=== PATIENT | female | born 2000 | race Caucasian/White ===

== ENCOUNTER 2021-07-20 03:15 | Inpatient (IN) ==
[2021-07-20] MEDS ORDERED: OXYTOCIN 30 UNITS/500 ML BAG IV PRN ×2 (04:02→17:25)
[2021-07-20 04:50] LABS: Hematocrit (blood only) 34.4 % (37-47); Hemoglobin 11.6 g/dL (12.0-16.0); Mean Corpuscular Hemoglobin 29.3 pg (25-34); Mean Corpuscular Hgb Conc 33.7 g/dL (32-36); Mean Corpuscular Volume 86.9 fL (80-100); Mean Platelet Volume 11.4 fL (7.4-10.4); Platelet Count 259 K/uL (130-400); RDW Coefficient of Variation 13.5 % (11.5-14.5); Red Blood Count 3.96 M/uL (4.2-5.4); White Blood Count 12.16 K/uL (4.8-10.8)
--- NOTE | 2021-07-20 07:32 | History & Physical Report ---
Date of Service July 20, 2021 Assessment & Plan (1) Gestational diabetes mellitus (GDM) affecting , antepartum: Plan: Patient presents with rupture membranes and initially she was juan in the middle of the night when she showed up at the side. Recommended Pitocin I reviewed her record gestational diabetes two-vessel cord obesity first baby she is almost 40 weeks today I recommend augmentation with Pitocin as mentioned estimated weight 8 pounds her check was 2 cm I will not repeat it now as she is not juan enough to justify it Admission and Anticipated Discharge Date Admission Date: July 20, 2021 History of Present Illness Primary Care Provider: NO PCP Allergies Allergy/AdvReac Type Severity Reaction Status Date / Time No Known Allergies Allergy Verified 07/20/21 03:18 Home Medications Medication Instructions Recorded Confirmed Type prenat.vits,ascencion,ncf-wytq-ntckj 1 tab PO DAILY 12/03/20 07/20/21 History acetone (urine) test (Ketone Urine #50 ea 06/14/21 07/16/21 Rx Test) blood sugar diagnostic (OneTouch #150 ea 06/14/21 07/16/21 Rx Verio test strips) blood-glucose meter (OneTouch #1 ea 06/14/21 07/16/21 Rx Verio Flex meter) lancets 33 gauge (OneTouch Delica #150 ea 06/14/21 07/16/21 Rx Plus Lancet) Patient History Medical History Varicella vaccination Surgical History S/P wisdom tooth extraction Family History (Updated 12/03/20 @ 08:51 by Yojana Mckeon) Grandmother (Paternal) Breast cancer Grandfather (Paternal) Diabetes Denies family history of Ovarian cancer Colorectal cancer Social History (Updated 02/11/21 @ 11:07 by Luciana Thompson MD) Smoking Status: Never smoker Hx Alcohol Use: No Hx Substance Use: No Preferred Language: Guyanese Communication Ability: Effective 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 Beliefs That Will Affect Care: None marital status: marital status details: juju Steiner [phone] Current Living Situation: Spouse Current Living Situation Comment: lives with fiance, dogs, chickens current occupational status: employed current occupation: [employer] Other Information That Helps Us Care for You: No Feels Safe at Home: Yes Safety Concerns: Feels Safe At This Time Results & Data ([facility]) Vital Signs (Past 12 Hours) Vital Signs Temp Pulse Resp BP 07/20/21 07:22 109 H 135/78 07/20/21 06:54 104 H 137/92 07/20/21 04:48 98.4 F 18 07/20/21 03:36 98.6 F 131 H 18 136/83 07/20/21 03:32 98.6 F 18 Coding Level of Care Code None Diagnoses Gestational diabetes mellitus (GDM) affecting , antepartum O24.419
[2021-07-20] MEDS: OXYTOCIN 30 UNITS/500 ML BAG IV PRN ×2 (08:04→16:32)
[2021-07-20] MEDS: LACTATED RINGER'S 1,000 ML IV PRN ×2 (08:04→17:18)
[2021-07-20] MEDS ORDERED: BUTORPHANOL TARTRATE 1 MG/ML VIAL IV ONE (12:48)
[2021-07-20] MEDS ORDERED: LIDOCAINE 1% LOCAL 20 ML VIAL ONE ×2 (15:48→15:57)
[2021-07-20] MEDS ORDERED: miSOPROStoL 200 MCG TAB ONE (16:49)
[2021-07-20] MEDS ORDERED: ceFAZolin 3,000 MG in DEXTROSE 5% 50 ML IV STA (16:59)
[2021-07-20] MEDS ORDERED: SUPERCREAM 0.870% 15 GM JAR EXT PRN (17:25)
[2021-07-20] MEDS ORDERED: BENZOCAINE 20% AER SPR 82.5 GM CAN EXT PRN (17:25)
[2021-07-20] MEDS ORDERED: HYDROCORTISONE ACETATE 25 MG SUPP PR PRN (17:25)
[2021-07-20] MEDS ORDERED: miSOPROStoL 200 MCG TAB PR ONE (17:25)
[2021-07-20] MEDS ORDERED: bisacodyL 10 MG SUPP PR PRN (17:25)
[2021-07-20] MEDS ORDERED: DIPHTHERIA/TETANUS/PERTUSSIS 0.5 ML SYR/VIAL IM ONE (17:25)
[2021-07-20] MEDS: IBUPROFEN 600 MG TAB PO PRN ×2 (17:56→22:18)
[2021-07-20] MEDS ORDERED: NALBUPHINE HCL INJ 10 MG/ML AMP IV PRN (19:06)
[2021-07-20] MEDS ORDERED: fentaNYL 2MCG/ML ROPIVACAINE 1.25MG/ML 100 ML BAG EPI PRN (19:06)
[2021-07-20] MEDS ORDERED: ONDANSETRON INJ 2 MG/ML 2 ML VIAL IV PRN (19:06)
[2021-07-20] MEDS ORDERED: ePHEDrine sulfate 50 MG/ML AMP IV PRN (19:06)
[2021-07-20] MEDS ORDERED: diphenhydrAMINE 50 MG/ML VIAL IV PRN (19:06)
[2021-07-20] MEDS ORDERED: NALOXONE HCL 1 MG in SODIUM CHLORIDE 0.9% 1000ML 1,000 ML IV PRN (19:06)
[2021-07-20] MEDS ORDERED: NALOXONE HCL 0.4 MG/1 ML VIAL/CARP IV PRN (19:06)
--- NOTE | 2021-07-20 19:14 | Anesthesiology Consultation ---
Date of Service July 20, 2021 Assessment & Plan (1) Encounter for pre-operative examination: Chart Review Chart Review: Patient NOT seen in Pre Admission Testing and Acceptable Risk for Labor Epidural Consults Requested none ASA ASA3 Proposed Anesthesia Anesthesia Type: Labor Epidural and CSE Risk / Benefits Reviewed With: PT / POA / Parent / Guardian, Accepts Plan and Informed Consent Obtained History Surgery The patient is Covid 19 positive as of testing from 07/18/21. She has no symptoms of Covid 19 but her boyfriend who is present has fatigue. Height/Weight Height: 5 ft 8 in Weight: 133.81 kg Allergies Allergy/AdvReac Type Severity Reaction Status Date / Time No Known Allergies Allergy Verified 07/20/21 03:18 Medications Home Medications Medication Instructions Recorded Confirmed Last Taken prenat.vits,ascencion,lbc-ysnd-aniuc 1 tab PO DAILY 12/03/20 07/20/21 07/19/21 acetone (urine) test (Ketone Urine #50 ea 06/14/21 07/16/21 Unknown Test) blood sugar diagnostic (OneTouch #150 ea 06/14/21 07/16/21 Unknown Verio test strips) blood-glucose meter (OneTouch #1 ea 06/14/21 07/16/21 Unknown Verio Flex meter) lancets 33 gauge (OneTouch Delica #150 ea 06/14/21 07/16/21 Unknown Plus Lancet) Active Medications Generic Name Dose Route Start Last Admin Trade Name Freq PRN Reason Stop Dose Admin Benzocaine 1 appln 07/20/21 17:25 07/20/21 19:03 Benzocaine 20% Aer Spr 82.5 Gm Can EXT 08/19/21 17:24 82.5 appln PRN PRN Administration Perineal Discomfort Lactated Ringer's 1,000 mls @ 125 mls/hr 07/20/21 04:02 07/20/21 17:18 Lr IV 07/22/21 04:01 125 mls/hr .Q8H PRN Administration L&D Protocol Protocol Oxytocin 30 units in 500 mls @ 333 mls/hr 07/20/21 07:29 07/20/21 16:32 Pitocin IV 07/22/21 07:28 19.98 units/hr .Q1H31M PRN 333 mls/hr Labor Induction/Augmentation Administration Protocol 19.98 UNITS/HR Ibuprofen 600 mg 07/20/21 17:25 07/20/21 17:56 Ibuprofen 600 Mg Tab PO 08/19/21 17:24 600 mg Q4H PRN Administration Pain/ALFONSO/Cramping/Fever NPO Date Last Intake of Fluids: 07/20/21 Time Last Intake of Fluids: 16:00 Last Intake of Fluids Comment: ice chips Date Last Intake of Solids: 07/19/21 Time Last Intake of Solids: 20:00 Past Medical History Medical History Gestational diabetes mellitus (GDM) affecting , antepartum Varicella vaccination Exercise / Class Metabolic Activity II 4-5 Yardwork/Stairs/Walk up hill Past Family History Family History Grandmother (Paternal) Breast cancer Grandfather (Paternal) Diabetes Denies family history of Ovarian cancer Colorectal cancer Past Surgical History Surgical History S/P wisdom tooth extraction Past Anesthesia History No Hx of Anesthesia Complications and No Family Hx of Anesthesia Complications History of PONV No Hx of PONV and No Hx of Motion Sickness Social History Smoking Status: Never smoker Hx Alcohol Use: No Hx Substance Use: No Review of Systems no chest pain or sob Physical Exam Vital Signs Last Vital Signs Temp 37.0 C 07/20/21 19:00 Pulse 105 H 07/20/21 18:52 Resp 18 07/20/21 19:00 BP 151/80 H 07/20/21 18:52 ENMT Mouth: no TMJ abnormality Thyromental Distance: > or= 3.5 Finger Breadths Mallampati Class: II Neck normal visual inspection Respiratory normal respiratory effort Auscultation: lungs clear to auscultation bilaterally Cardiovascular Rate/Rhythm: regular rate and regular rhythm Musculoskeletal Spine: normal cervical ROM Neurologic moves all extremities Psychiatric Orientation: alert and oriented x 3 Testing Laboratory Results 07/20/21 04:16 Blood Type O Negative 07/20/21 04:16 Antibody Screen NEGATIVE 07/20/21 04:16
[2021-07-20] MEDS: DOCUSATE SODIUM 100 MG CAP PO SCH (20:09)
[2021-07-20] MEDS: ACETAMINOPHEN 325 MG TAB PO PRN (20:46)
--- NOTE | 2021-07-21 01:26 | Operative Report (OR) ---
PROCEDURE: Normal spontaneous vaginal delivery with fourth-degree perineal laceration repair, bilateral sulcal laceration repairs and bilateral labial laceration repairs. ESTIMATED BLOOD LOSS: 400 mL DRAINS: None. FLUIDS: Continuous lactated Ringer. URINE OUTPUT: None. INDICATIONS: The patient s a 21-year-old G1, P0, admitted at 40 weeks, 0 days gestational age with spontaneous rupture of membranes. The patient was juan initially on presentation; however, contractions waned and the patient was started on oxytocin per regular protocol. She progressed in labor without epidural anesthesia and progressed to complete-complete, +1 station, at which time she felt a strong urge to push. DESCRIPTION OF PROCEDURE: The patient progressed to 10 cm dilated, 100% effaced, positive 1 station, pushed over intact perineum without anesthesia and delivered a viable with weight and Apgars pending. The head of the delivered in KENYATTA position, restituted to right transverse. Nuchal cord x1 was noted, which was easily reduced. Body and shoulders quickly followed. was noted to be vigorous soon after delivery and a 30-second delayed cord clamping was initiated, after which the cord was double clamped and cut. Cord segment and cord blood were obtained. Attention was then turned to delivery of the placenta, which was delivered intact, 3-vessel cord, gentle cord traction. On inspection of perineum, there was noted to be a fourth-degree perineal laceration with the distal rectal mucosa disrupted right at the rectal verge and maybe 0.5-1 cm beyond the rectal verge. The rectal mucosa was reapproximated with 3-0 Vicryl interrupted stitch. It took approximately 3 stitches to close the small defect. The anal sphincter was then identified, grasped with Iram clamps and was reapproximated at the 3, 6, 9, and 12 o'clock position with 2-0 Vicryl in interrupted stitch. There was noted to be bilateral sulcal lacerations. These were repaired with 3-0 Vicryl in continuous running locked stitch. The standard second-degree was then repaired with the crown stitch with care to approximate the deeper layers between the rectum and the vaginal mucosa. This was repaired in 3 layers as well with the deeper layers repaired with 3-0 Vicryl in an interrupted and the more superficial layers including the vaginal mucosa and a more superficial layers with a continuous running stitch. The bilateral labial lacerations were repaired with 3-0 Vicryl with a continuous running stitch. After the completion of the repair, there was noted to be excellent cosmesis of the lacerations and bleeding was noted to be minimal. rectal exam was noted no sutures through rectal mucosa. The patient received 20 mL of lidocaine throughout the repair process. Needle, sponge, and instrument counts were correct at the completion of the case. Both mother and were stable in the immediate post-delivery period. The patient also received 3 grams of Ancef for the fourth-degree repair. Job ID: [id number] [facility]
[2021-07-21] MEDS: IBUPROFEN 600 MG TAB PO PRN ×4 (01:54→20:33)
[2021-07-21 06:54] LABS: Hematocrit (blood only) 29.7 % (37-47); Hemoglobin 10.1 g/dL (12.0-16.0); Mean Corpuscular Hemoglobin 29.6 pg (25-34); Mean Corpuscular Volume 87.1 fL (80-100); Mean Platelet Volume 11.1 fL (7.4-10.4); Platelet Count 238 K/uL (130-400); RDW Coefficient of Variation 13.9 % (11.5-14.5); RDW Standard Deviation 44.1 fL (36.4-46.3); Red Blood Count 3.41 M/uL (4.2-5.4); White Blood Count 12.35 K/uL (4.8-10.8)
[2021-07-21] MEDS: DOCUSATE SODIUM 100 MG CAP PO SCH ×2 (07:27→20:33)
[2021-07-21] MEDS: PRENATAL VITAMIN 1 TAB PO SCH (07:27)
--- NOTE | 2021-07-21 11:08 | Obstetrical Progress Note ---
Date of Service July 21, 2021 Assessment & Plan (1) Encounter for care and examination after delivery: 21yo day 1 S/P with 4th decree laceration. Doing well. Reviewed laceration and care instruction. Reviewed importance of bowel care and avoiding straining for BMs. Subjective Ambulation: ambulating normally Voiding: no voiding problems Passing Gas:: Yes Diet Tolerance:: regular diet Lochia:: Moderate Feeding Type:: breast feeding Physical Exam Constitutional WD/WN, vitals as above Respiratory normal respiratory effort; no respiratory distress and no labored breathing Gastrointestinal (Abdomen) Inspection/Auscultation: abdomen normal to inspection; abdomen not distended Percussion/Palpation: abdomen soft; abdomen nontender, no guarding and abdomen not rigid Genitourinary OB Exam Abdomen: + fundal height Fundus: + firm and + relation to umbilicus (Below); not tender or not boggy Results & Data ([facility]) Vital Signs (Past 12 Hours) Vital Signs Temp Pulse Resp BP Pulse Ox 07/21/21 07:30 36.5 C 89 18 139/87 07/21/21 04:35 36.7 C 92 H 18 137/83 07/20/21 23:20 36.8 C 105 H 18 136/88 98
[2021-07-21] MEDS: ACETAMINOPHEN 325 MG TAB PO PRN ×2 (15:08→23:44)
[2021-07-21] MEDS ORDERED: bisacodyL 5 MG TABEC PO SCH (20:00)
[2021-07-22] MEDS: IBUPROFEN 600 MG TAB PO PRN (04:55)
[2021-07-22 06:16] LABS: Hematocrit (blood only) 29.7 % (37-47); Hemoglobin 9.7 g/dL (12.0-16.0)
--- NOTE | 2021-07-22 06:38 | Obstetrical Progress Note ---
Date of Service <Dima Santiago DO - Last Filed: 07/22/21 07:33> July 22, 2021 Assessment & Plan <Dima Santiago DO - Last Filed: 07/22/21 07:33> (1) Encounter for care and examination after delivery: 21 yo post day 2 from vaginal delivery, doing well. -Continue routine post care. - vital signs reviewed and WNL. (Tmax 37.0) -Blood type O-, GBS -, Rubella Immune -Encourage ambulation, monitor and control pain with Motrin, tylenol PRN, resume regular diet, monitor lochia. -encourage breast feeding. Breast pump [needed/already has]. -hemoglobin 9.7 -Plan for discharge today, discussed discharge with patient. Patient will follow up with Dr. Patel in a week for stitches check for tear and 6 weeks for post check. <Angel Patel MD - Last Filed: 07/24/21 16:55> (1) Encounter for care and examination after delivery: Patient seen and evaluated and agree with the above findings and plan. Reviewed 4th degree laceration care including bowel care recs. Will arrange for 2 week laceration check/ BP check Subjective <Dima Santiago - Last Filed: 07/22/21 07:33> Ambulation: ambulating normally Voiding: no voiding problems Passing Gas:: Yes Diet Tolerance:: regular diet Lochia:: Small Feeding Type:: breast feeding Current Pain Level(1-10): 0 Review of Systems Denies fever, chills, sweats Denies shortness of breath, difficulty breathing, chest pain, palpitations, chest pressure. Denies breast pain. Denies dysuria. Denies headache or changes in vision Physical Exam <Dima Santiago - Last Filed: 07/22/21 07:33> General: Alert, oriented. No acute distress. Cardiac: Regular rate and rhythm, no murmurs/rubs/gallops. Respiratory: Clear to auscultation bilaterally a/p, no wheezes/rales/rhonchi. No increased work of breathing. Symmetrical chest rise. No respiratory distress. Abdomen: Soft, nontender, nondistended. Bowel sounds present. Uterus: Uterine fundus firm, palpable 3 cm below umbilicus. Lower Extremities: No lower extremity edema or swelling. No deep calf pain. Kourtney's negative bilaterally Results & Data ([facility]) <Dima Santiago DO - Last Filed: 07/22/21 07:33> Vital Signs (Past 12 Hours) Vital Signs Temp Pulse Resp BP Pulse Ox 07/22/21 03:30 36.7 C 103 H 18 156/98 H 98 07/21/21 23:15 36.4 C L 96 H 18 139/93 98 07/21/21 20:30 36.7 C 98 H 18 129/83 98 Resident Activity Tracking <Dima Santiago DO - Last Filed: 07/22/21 07:33> Resident Involvement: Resident Care Provided Care Provided: OB Delivery
[2021-07-22] MEDS: DOCUSATE SODIUM 100 MG CAP PO SCH (09:04)
[2021-07-22] MEDS: PRENATAL VITAMIN 1 TAB PO SCH (09:04)
[2021-07-22] MEDS: ACETAMINOPHEN 325 MG TAB PO PRN (09:04)
== END 2021-07-22 14:05 | disposition home or self-care (01) | DRG 768 ==
LOC: OPB 03:15 → 4S1 03:17 → 4S2 20:26

== ENCOUNTER 2024-04-14 09:59 | Inpatient (IN) ==
[2024-04-14 11:49] LABS: Creatinine Urine Random 18.1 mg/dl; Total Protein Urine Random < 4.0 mg/dl (0-11.9)
[2024-04-14 12:05] LABS: Hematocrit (blood only) 37.6 % (37.0-47.0); Hemoglobin 12.6 g/dl (12.0-16.0); Mean Corpuscular Hemoglobin 28.4 pg (25.0-34.0); Mean Corpuscular Hgb Conc 33.5 g/dL (32.0-36.0); Mean Corpuscular Volume 84.9 fL (80.0-100.0); Mean Platelet Volume 11.5 fL (9.4-12.4); Platelet Count 213 K/uL (130-400); RDW Coefficient of Variation 13.3 % (11.5-14.5); Red Blood Count 4.43 M/uL (4.20-5.40)
[2024-04-14 12:15] LABS: Alanine Aminotransferase 15 U/L (7-52); Albumin Globulin Ratio 1.1 (0.9-2); Albumin Level 3.6 gm/dl (3.4-5.0); Alkaline Phosphatase 132 U/L (34-104); Anion Gap 9 (3-11); Aspartate Aminotransferase 21 U/L (13-39); BUN Creatinine Ratio 10.9 (10-20); Bilirubin,Total 0.4 mg/dl (0.2-1.0); Blood Urea Nitrogen 6 mg/dl (6-23); Calcium 9.1 mg/dl (8.6-10.3); Carbon Dioxide 22 mmol/L (21-32); Chloride 106 mmol/L (98-107); Globulin 3.3 gm/dl (2.5-4.0); Glucose 85 mg/dl (70-99(Fasting)); Sodium 137 mmol/L (136-145); Total Protein 6.9 gm/dl (6.0-8.3)
[2024-04-14] MEDS ORDERED: OXYTOCIN 30 UNITS/NSS 30 UNITS/500 ML BAG IV PRN (13:21)
[2024-04-14] MEDS ORDERED: LIDOCAINE 1% LOCAL 20 ML VIAL INFIL PRN (13:21)
[2024-04-14] MEDS: NIFEdipine 10 MG CAP PO STA (13:56)
[2024-04-14] MEDS: hydrOXYzine HCl 10 MG TAB PO PRN (14:07)
[2024-04-14] MEDS: OXYTOCIN 30 UNITS/NSS 30 UNITS/500 ML BAG IV PRN (16:25)
[2024-04-14] MEDS: LACTATED RINGER'S 1,000 ML IV PRN (16:25)
--- NOTE | 2024-04-14 16:41 | History & Physical Report ---
Date of Service April 14, 2024 Assessment & Plan (1) Gestational hypertension: Plan: Given that patient is 39 weeks at this time, recommended that she stay at labor and delivery for induction of labor rather than waiting for her scheduled induction tomorrow. Due to elevated blood pressures, 1 dose of nifedipine was given orally. Reviewed preeclampsia labs, these are negative. Will plan for IV Pitocin, she does not desire epidural. Admission and Anticipated Discharge Date Admission Date: April 14, 2024 History of Present Illness Chief Complaint: Gestational hypertension Primary Care Provider: TERESA Eugene 24-year-old -0-0-1 at 39 weeks 4 days presented to labor and delivery for routine nonstress test, blood pressures were noted to be elevated. complicated by gestational diabetes, Rh-, obesity, history of fourth degree tear. Allergies Allergy/AdvReac Type Severity Reaction Status Date / Time No Known Allergies Allergy Verified 04/14/24 09:29 Home Medications Medication Instructions Recorded Confirmed Type acetone (urine) test (Ketone Urine #50 ea 09/22/23 04/14/24 Rx Test strips) blood sugar diagnostic (OneTouch #150 ea 09/22/23 04/14/24 Rx Verio test strips) blood-glucose meter (OneTouch #1 ea 09/22/23 04/14/24 Rx Verio Reflect Meter) lancets 33 gauge (OneTouch Delica #150 ea 09/22/23 04/14/24 Rx Plus Lancet) vit no.95-ferrous 1 tab PO DAILY 04/14/24 04/14/24 History fumarate 28 mg-folic acid 800 mcg tablet () Patient History Medical History (Updated 04/14/24 @ 16:43 by Suzanne Crane DO) Anxiety Encounter for care and examination after delivery Encounter for pre-operative examination Varicella vaccination Surgical History S/P wisdom tooth extraction Family History Grandmother (Paternal) Breast cancer Grandfather (Paternal) Diabetes Father Hypertension Denies family history of Ovarian cancer Prostate cancer Myocardial infarction Colorectal cancer Uterine cancer Social History Smoking Status: Never smoker Do You Dip or Chew Tobacco: No; Hx Alcohol Use: No Hx Substance Use: No Preferred Language: Ecuadorean Communication Ability: Effective Ase Certified Technician Required: No Beliefs That Will Affect Care: None marital status: marital status details: Jacques Steiner(25) [phone] Current Living Situation: Spouse and Family Current Living Situation Comment: lives with , daughter, dogs current occupational status: employed current occupation: [employer] How many Children do You have: 1 How many Children do You have Comment: daughter Other Information That Helps Us Care for You: No Feels Safe at Home: Yes Safety Concerns: Feels Safe At This Time Childhood Exposure to Second-Hand Smoke: No Dental Care, Regularly: Yes Physical Activity Frequency: 1-2 Times per Week Seatbelt Use: always Sunscreen Use: Yes Assistive Devices: None Review of Systems All systems reviewed & are unremarkable except as noted in HPI & below Physical Exam Physical Exam: FHT category 1 Ortley none Cervix exam: 50/-2 Constitutional: WD/WN, vitals as above Respiratory: normal respiratory effort, lungs clear to auscultation no respiratory distress Cardiovascular: Rate/Rhythm: regular rate and regular rhythm Gastrointestinal (Abdomen): Inspection/Auscultation: abdomen normal to inspection Percussion/Palpation: abdomen soft; abdomen nontender Gravid. No s/s chorio or abruption. Skin: no rashes, warm and dry Psychiatric: A+Ox3, euthymic affect Results & Data Vital Signs (Past 12 Hours) Vital Signs Temp Pulse Resp BP 04/14/24 16:31 103 H 04/14/24 16:31 167/86 H 04/14/24 16:29 106 H 04/14/24 16:29 169/96 H 04/14/24 15:39 110 H 04/14/24 15:39 143/85 H 04/14/24 15:00 113 H 04/14/24 15:00 144/84 H 04/14/24 14:33 106 H 04/14/24 14:33 150/86 H 04/14/24 14:06 37.0 C 106 H 20 150/86 H 04/14/24 13:55 110 H 04/14/24 13:55 147/90 H 04/14/24 12:50 170/100 H 04/14/24 12:21 99 H 176/104 H 04/14/24 12:20 100 H 165/94 H 04/14/24 12:15 114 H 162/88 H 04/14/24 12:00 109 H 143/111 H 04/14/24 11:58 102 H 178/97 H 04/14/24 11:13 113 H 143/80 H 04/14/24 11:03 112 H 156/86 H 04/14/24 10:55 20 04/14/24 10:53 104 H 136/102 H 04/14/24 10:33 99 H 155/91 H 04/14/24 10:17 112 H 146/90 H Coding Level of Care Code None Diagnoses Gestational hypertension O13.9
[2024-04-14] MEDS ORDERED: ACETAMINOPHEN 500 MG TAB PO PRN (22:23)
--- NOTE | 2024-04-14 22:25 | Labor Progress Brief Note ---
Date of Service April 14, 2024 Subjective Requesting stadol. Does not desire epidural, aware that cannot give stadol just prior to delivery. FHT Cat 1 [place] q 2 SVE 4/80/-2 AROM clear fluid. Continue pitocin. Assessment & Plan Admission and Anticipated Discharge Date Admission Date: April 14, 2024 Results & Data Vital Signs (Past 12 Hours) Vital Signs Temp Pulse Resp BP 04/14/24 21:58 87 04/14/24 21:58 147/80 H 04/14/24 21:12 94 H 04/14/24 21:12 144/85 H 04/14/24 19:58 93 H 04/14/24 19:58 134/78 04/14/24 19:30 18 04/14/24 19:30 36.7 C 18 04/14/24 18:58 110 H 04/14/24 18:58 145/87 H 04/14/24 18:20 20 04/14/24 18:20 37.0 C 20 04/14/24 17:57 100 H 04/14/24 17:57 138/85 04/14/24 16:54 20 04/14/24 16:54 20 04/14/24 16:54 108 H 04/14/24 16:54 153/74 H 04/14/24 16:31 103 H 04/14/24 16:31 167/86 H 04/14/24 16:29 106 H 04/14/24 16:29 169/96 H 04/14/24 15:39 110 H 04/14/24 15:39 143/85 H 04/14/24 15:00 113 H 04/14/24 15:00 144/84 H 04/14/24 14:33 106 H 04/14/24 14:33 150/86 H 04/14/24 14:06 37.0 C 106 H 20 150/86 H 04/14/24 13:55 110 H 04/14/24 13:55 147/90 H 04/14/24 12:50 170/100 H 04/14/24 12:21 99 H 176/104 H 04/14/24 12:20 100 H 165/94 H 04/14/24 12:15 114 H 162/88 H 04/14/24 12:00 109 H 143/111 H 04/14/24 11:58 102 H 178/97 H 04/14/24 11:13 113 H 143/80 H 04/14/24 11:03 112 H 156/86 H 04/14/24 10:55 20 04/14/24 10:53 104 H 136/102 H 04/14/24 10:33 99 H 155/91 H Coding Level of Care Code None
[2024-04-14] MEDS: BUTORPHANOL TARTRATE 2 MG/ML VIAL IV STA (22:40)
[2024-04-14] MEDS: BUTORPHANOL TARTRATE 2 MG/ML VIAL ONE (23:43)
--- NOTE | 2024-04-15 00:38 | Labor Progress Brief Note ---
Date of Service April 15, 2024 Subjective Feeling ctx. FHT - difficult to trace [place] Q 2 IUPC and FSE placed to trace FHT better. - Cat 1 Assessment & Plan Admission and Anticipated Discharge Date Admission Date: April 14, 2024 Results & Data Vital Signs (Past 12 Hours) Vital Signs Temp Pulse Resp BP 04/15/24 00:15 86 147/95 H 04/14/24 23:47 101 H 04/14/24 23:47 159/90 H 04/14/24 23:18 94 H 04/14/24 23:18 153/88 H 04/14/24 22:47 88 04/14/24 22:47 161/87 H 04/14/24 22:30 18 04/14/24 22:30 37.0 C 18 04/14/24 21:58 87 04/14/24 21:58 147/80 H 04/14/24 21:12 94 H 04/14/24 21:12 144/85 H 04/14/24 19:58 93 H 04/14/24 19:58 134/78 04/14/24 19:30 18 04/14/24 19:30 36.7 C 18 04/14/24 18:58 110 H 04/14/24 18:58 145/87 H 04/14/24 18:20 20 04/14/24 18:20 37.0 C 20 04/14/24 17:57 100 H 04/14/24 17:57 138/85 04/14/24 16:54 20 04/14/24 16:54 20 04/14/24 16:54 108 H 04/14/24 16:54 153/74 H 04/14/24 16:31 103 H 04/14/24 16:31 167/86 H 04/14/24 16:29 106 H 04/14/24 16:29 169/96 H 04/14/24 15:39 110 H 04/14/24 15:39 143/85 H 04/14/24 15:00 113 H 04/14/24 15:00 144/84 H 04/14/24 14:33 106 H 04/14/24 14:33 150/86 H 04/14/24 14:06 37.0 C 106 H 20 150/86 H 04/14/24 13:55 110 H 04/14/24 13:55 147/90 H 04/14/24 12:50 170/100 H Coding Level of Care Code None
[2024-04-15] MEDS ORDERED: diphenhydrAMINE 50 MG/ML VIAL IV PRN (02:22)
[2024-04-15] MEDS ORDERED: BUPIVACAINE 0.25% PF 30 ML VIAL EPI PRN (02:22)
[2024-04-15] MEDS ORDERED: ePHEDrine sulfate 50 MG/ML AMP IV PRN (02:22)
[2024-04-15] MEDS ORDERED: NALBUPHINE HCL INJ 10 MG/ML AMP IV PRN (02:22)
[2024-04-15] MEDS ORDERED: NALOXONE HCL 1 MG in SODIUM CHLORIDE 0.9% 1,000 ML IV PRN (02:22)
[2024-04-15] MEDS ORDERED: LIDOCAINE 2% MPF LOCAL 5 ML VIAL EPI PRN (02:22)
[2024-04-15] MEDS ORDERED: fentaNYL citrate PF 100 MCG/2 ML VIAL EPI PRN (02:22)
[2024-04-15] MEDS ORDERED: ROPIVACAINE 0.5% PF 5 MG/ML 20 ML VIAL EPI PRN (02:22)
[2024-04-15] MEDS ORDERED: SODIUM CHLORIDE 0.9% PF INJ 10 ML VIAL EPI PRN (02:22)
[2024-04-15] MEDS ORDERED: NALOXONE HCL 0.4 MG/1 ML VIAL/CARP IV PRN (02:22)
[2024-04-15] MEDS ORDERED: fentANYL 2 MCG/ML BUPIVacaine 0.125%-NSS 100ML BAG EPI PRN (02:22)
--- NOTE | 2024-04-15 02:22 | Anesthesiology Consultation ---
Date of Service April 15, 2024 Assessment & Plan (1) Encounter for pre-operative examination: Chart Review Chart Review: Patient NOT seen in Pre Admission Testing and Acceptable Risk for Labor Epidural Consults Requested none History Height/Weight Height: 5 ft 8 in Weight: 138.799 kg Allergies Allergy/AdvReac Type Severity Reaction Status Date / Time No Known Allergies Allergy Verified 04/14/24 09:29 Medications Home Medications Medication Instructions Recorded Confirmed Last Taken acetone (urine) test (Ketone Urine #50 ea 09/22/23 04/14/24 Unknown Test strips) blood sugar diagnostic (OneTouch #150 ea 09/22/23 04/14/24 Unknown Verio test strips) blood-glucose meter (OneTouch #1 ea 09/22/23 04/14/24 Unknown Verio Reflect Meter) lancets 33 gauge (OneTouch Delica #150 ea 09/22/23 04/14/24 Unknown Plus Lancet) vit no.95-ferrous 1 tab PO DAILY 04/14/24 04/14/24 04/13/24 21:30 fumarate 28 mg-folic acid 800 mcg tablet () Active Medications Generic Name Dose Route Start Last Admin Trade Name Freq PRN Reason Stop Dose Admin Hydroxyzine HCl 10 mg 04/14/24 13:24 04/15/24 01:48 Hydroxyzine Hcl 10 Mg Tab PO 05/14/24 13:23 10 mg Q8 PRN Administration Anxiety Lactated Ringer's 1,000 mls @ 125 mls/hr 04/14/24 13:21 04/14/24 16:25 Lr IV 04/16/24 13:20 50 mls/hr .Q8H PRN Administration L&D Protocol Protocol Oxytocin 30 units in 500 mls @ 13 mls/hr 04/14/24 13:21 04/14/24 23:30 Pitocin 30 Units/Nss IV 04/16/24 13:20 0.78 units/hr .Q24H PRN 13 mls/hr Labor Induction/Augmentation Titration Protocol 0.78 UNITS/HR Past Medical History Medical History Anxiety Encounter for care and examination after delivery Encounter for pre-operative examination Varicella vaccination Past Family History Family History Grandmother (Paternal) Breast cancer Grandfather (Paternal) Diabetes Father Hypertension Denies family history of Ovarian cancer Prostate cancer Myocardial infarction Colorectal cancer Uterine cancer Past Surgical History Surgical History S/P wisdom tooth extraction Social History Smoking Status: Never smoker Do You Dip or Chew Tobacco: No Hx Alcohol Use: No Hx Substance Use: No Physical Exam Vital Signs Last Vital Signs Temp 98.6 F 04/14/24 22:30 Pulse 93 H 04/15/24 01:18 Resp 18 04/14/24 22:30 BP 130/61 04/15/24 01:18 Testing Laboratory Results 04/14/24 11:16 04/14/24 11:16 Blood Type Cancelled 04/14/24 11:21 Blood Type O Negative 04/14/24 11:21 Antibody Screen Cancelled 04/14/24 11:21 Antibody Screen NEGATIVE 04/14/24 11:21
[2024-04-15] MEDS: BUPIVACAINE 0.25% PF 30 ML VIAL ONE (02:53)
[2024-04-15] MEDS: fentaNYL citrate PF 100 MCG/2 ML VIAL ONE (02:54)
[2024-04-15] MEDS: LIDOCAINE 2%/EPINEPHRINE 1:200,000 20 ML PF ONE (02:54)
[2024-04-15] MEDS: NIFEdipine 10 MG CAP PO STA (02:54)
[2024-04-15] MEDS: ePHEDrine sulfate 50 MG/ML AMP ONE (02:54)
[2024-04-15] MEDS: fentANYL 2 MCG/ML BUPIVacaine 0.125%-NSS 100ML BAG ONE (02:55)
[2024-04-15] MEDS: SODIUM CHLORIDE 0.9% PF INJ 10 ML VIAL ONE (02:55)
[2024-04-15] MEDS: BUPIVACAINE 0.25% PF 30 ML VIAL EPI STA (03:26)
[2024-04-15] MEDS: fentaNYL citrate PF 100 MCG/2 ML VIAL EPI STA (03:27)
[2024-04-15] MEDS: LIDOCAINE 2%/EPINEPHRINE 1:200,000 20 ML PF EPI STA (03:27)
[2024-04-15] MEDS: SODIUM CHLORIDE 0.9% PF INJ 10 ML VIAL EPI STA (03:27)
--- NOTE | 2024-04-15 06:20 | Delivery Summary ---
Vaginal Delivery Summary Date of Service April 15, 2024 Vaginal Delivery Summary and 2nd Degree LAC Vaginal Delivery Summary: Pre-delivery diagnoses: 24yo @ 39 5/7, gHTN IOL, GDM, obesity Post-delivery diagnoses: same Procedure: spontaneous vaginal delivery Surgeon: Suzanne Crane DO Complications: none Findings: Viable female . Apgars: 8/9 . Weight pending, please see nursery records Estimated Q blood loss: 104 Description of delivery: The patient progressed to complete with epidural anesthesia. She then began to push. She spontaneously vaginally delivered a viable from the cephalic presentation. The head delivered in CHET position. The anterior shoulder delivered, followed by the posterior shoulder, followed by the body. The baby was placed on mother's abdomen and a spontaneous cry was heard. Delayed cord clamping was employed, and the cord was doubly clamped and cut. Cord blood was obtained. The placenta was delivered spontaneously intact with a 3-vessel cord. The uterus and vagina were swept of clots and debris. IV pitocin was given. The uterus became firm. The cervix, vagina, and perineum were inspected and 2nd degree laceration was noted and repaired in standard fashion with 3-0 Vicryl. Excellent hemostasis was observed. The mother and baby are recovering in stable and good condition in the room. Sponge, needle and instrument counts were correct x 2. Suzanne Crane DO [facility] Vaginal Delivery Charge Vaginal Delivery Codes: 06491 global code for the antepartum, delivery, and post- Delivery Type Details: and 2nd Degree LAC
[2024-04-15] MEDS ORDERED: OXYTOCIN 30 UNITS/NSS 30 UNITS/500 ML BAG IV PRN (06:36)
[2024-04-15] MEDS ORDERED: bisacodyL 10 MG SUPP PR PRN (06:36)
[2024-04-15] MEDS ORDERED: HYDROCORTISONE ACETATE 25 MG SUPP PR PRN (06:36)
[2024-04-15] MEDS ORDERED: DIPHTHER/TETAN/PERTUS Vaccine (Tdap, Adol/Adult) 0.5mL IM ONE (06:36)
[2024-04-15] MEDS: IBUPROFEN 600 MG TAB PO PRN (07:11)
[2024-04-15] MEDS: BENZOCAINE 20% SPRY 85 APPLN/85 GM CAN EXT PRN (07:16)
[2024-04-15] MEDS: PRENATAL VITAMIN 1 TAB PO SCH (07:16)
[2024-04-15] MEDS: DOCUSATE SODIUM 100 MG CAP PO SCH (07:16)
--- NOTE | 2024-04-15 08:25 | Anesthesia Procedure Note ---
Date of Service April 15, 2024 Anesthesia Post Epidural Note Vital Signs Vital Signs: Temp Pulse Resp BP Pulse Ox 36.7 C 114 H 18 133/74 87 L 04/15/24 06:15 04/15/24 08:03 04/15/24 07:00 04/15/24 08:03 04/15/24 05:43 Pain Intensity Bilateral Episiotomy/Laceration: Pain Intensity: 2 Notes Mental Status: alert / awake / arousable Nausea / Vomiting: adequately controlled Pain: adequately controlled Airway Patency, RR, SpO2: stable & adequate BP & HR: stable & adequate Hydration State: stable & adequate Neuraxial Anesthesia: was administered and sensory block is resolving Anesthetic Complications: no major complications apparent and Pt Satisfied with anesthetic care Epidural: Removed without complications and With tip intact
[2024-04-15] MEDS: ACETAMINOPHEN 325 MG TAB PO PRN (11:07)
[2024-04-15] MEDS: OXYTOCIN 20 UNITS/LR 1,002 ML IV SCH (12:04)
[2024-04-15] MEDS: CARBOPROST TROMETHAMINE 250 MCG/ML AMPUL ONE (13:20)
[2024-04-15] MEDS: miSOPROStoL 200 MCG TAB ONE (13:21)
[2024-04-15] MEDS: oxyCODONE/ACETAMINOPHEN 5mg/325mg TAB PO PRN (13:34)
[2024-04-15] MEDS: hydrOXYzine HCl 10 MG TAB PO PRN (13:35)
--- NOTE | 2024-04-15 13:51 | Communication Note ---
Date of Service: April 15, 2024 Called by nursing due to large gush of blood while in bathroom. RN had messaged me w/ pt passing plum size clot and appropriate bleeding afterward so was ordered an extra bag of pitocin. A few hours later, she went to bathroom and then passed very large clot and brought back to bed, denies lightheadedness/dizziness during this time. VSS. Fundus was firm and 2-3cm below umbilicus, bleeding again appropriate at this time. Manual sweep attempted but limited due to cervix but no palpable clot in SHIRA. Pitocin continued and dose of hemabate and 1000mcg OK cytotec given. Total PPH since moving over to unit was 650. Will continue to monitor
--- NOTE | 2024-04-16 05:52 | Obstetrical Progress Note ---
Date of Service <Richardson Viramontes DO - Last Filed: 04/16/24 07:32> April 16, 2024 Assessment & Plan <Richardson Viramontes DO - Last Filed: 04/16/24 07:32> (1) state: Patient is a 24yo day 1 s/p Feeling well today, VSS. Continue care, lac care Ambulation and as tolerated Pain control w/ ibuprofen Hb.6, stable Home: discharge today if pt and baby are doing well Follow up with Dr. Crane in 6wks (2) Perineal laceration during delivery: 2nd degree perineal laceration repaired in standard fashion with 3-0 Vicryl healing well, monitor for signs of infection Perineal laceration degree: second degree Qualified Code(s): O70.1 - Second degree perineal laceration during delivery <Luciana Thompson MD - Last Filed: 04/16/24 07:32> (1) state: (2) Perineal laceration during delivery: Subjective <Richardson Viramontes DO - Last Filed: 04/16/24 07:32> Patient is a 24yo day 1 s/p complicated by 2nd deg perineal lac. Feeling much better than yesterday which included passing of significant clots, no clots since yesterday. No significant pain or bleeding from lac. Ambulation: yes Voiding: urine and BM Passing gas: yes Diet tolerance: tolerating OB regular Lochia: decreasing Feeding type: breast, bottle if necessary. Baby current being treated for blood sugar Review of Systems as above Physical Exam <Richardson Viramontes DO - Last Filed: 04/16/24 07:32> General: A&Ox4, answers questions appropriately, resting comfortably, nontoxic in appearance Skin: lac healing well with stitches in place; otherwise skin warm, dry, intact HEENT: NC/AT, anicteric sclerae, conjunctiva w/o injection, moist mucous membranes Heart: +s1/s2, RRR, no murmurs/rubs/gallops Lungs: equal air entry b/l, clear to auscultation b/l, no wheeze/rales/rhonchi Abd: +BS, no erythema, mild lower abdominal tenderness to palpation, fundus firm at level of umbilicus Ext: no erythema/swelling/tenderness to palpation, no cyanosis/clubbing Neuro: speech intact, no facial droop, moving all extremities on command Results & Data <Richardson Viramontes DO - Last Filed: 04/16/24 07:32> Vital Signs (Past 12 Hours) Vital Signs Temp Pulse Resp BP Pulse Ox O2 Del Method 04/16/24 03:39 36.9 C 85 19 134/83 98 Room Air 04/15/24 23:21 37 C 99 H 18 117/81 97 Room Air 04/15/24 19:32 37.2 C 89 18 124/82 98 Room Air Supervising Physician <Luciana Thompson MD - Last Filed: 04/16/24 07:32> Co-Signing Physician Notes Resident Physician Supervision Note: I interviewed and examined the patient. Discussed with Dr. Jones and agree with findings and plan as documented in the note. Any exceptions or clarifications are listed here: PP1 s/p , doing well. No concerning bleeding following hemabate/cytotec yesterday am. VSS, exam benign and wnl. Baby having bg issues but may be weaning today, she would like dc if baby can otherwise dc tomorrow Documented By: Luciana Thompson MD Resident Activity Tracking <Richardson Viramontes DO - Last Filed: 04/16/24 07:32> Resident Involvement: Resident Care Provided Care Provided: OB Delivery
[2024-04-16 07:48] LABS: Hematocrit (blood only) 25.6 % (37.0-47.0); Hemoglobin 8.7 g/dl (12.0-16.0)
[2024-04-16 16:08] VITALS: O2SAT 98
[2024-04-16 19:05] VITALS: BP 143/90; RESP 18; TEMP 97.9
[2024-04-16] MEDS: bisacodyL 5 MG TABEC PO SCH (20:09)
[2024-04-16] MEDS ORDERED: STROKE PATIENT DISCHARGE STA (20:34)
[2024-04-16 20:37] VITALS: PULSE 115
== END 2024-04-16 22:45 | disposition home or self-care (01) | DRG 807 ==
LOC: OPB 09:59 → 4S1 10:04 → 4E2 04-15 08:59
DX: O26.893 Other specified pregnancy related conditions, third trimester; O99.214 Obesity complicating childbirth; Z23 Encounter for immunization; O13.4 Gestational [pregnancy-induced] hypertension without significant proteinuria, complicating childbirth; Z37.0 Single live birth; O70.1 Second degree perineal laceration during delivery; O24.420 Gestational diabetes mellitus in childbirth, diet controlled; Z67.41 Type O blood, Rh negative; Z3A.39 39 weeks gestation of pregnancy